=== PATIENT | female | born 1990 | race Two or more races ===

== ENCOUNTER → 2024-08-07 | Outpatient (CLI) | payer BC ==
[2024-08-07 09:23] LABS: % Iron Saturation 55.8 % (15-50)
[2024-08-07 09:26] LABS: Alanine Aminotransferase 96 U/L (7-40); Albumin 4.3 g/dL (3.2-4.8); Alkaline Phosphatase 49 U/L (46-116); Anion Gap 5 (5-15); Aspartate Aminotransferase 43 U/L (13-40); Bilirubin, Total 0.7 mg/dL (0.2-1.0); Blood Urea Nitrogen 12 mg/dL (9-23); Calcium 10.2 mg/dL (8.7-10.4); Carbon Dioxide 25 mmol/L (20-31); Chloride 109 mmol/L (98-107); Cholesterol 147 mg/dL (< 200); Creatine Kinase IFCC 56 U/L (34-145); Glucose 124 mg/dL (74-106); HDL Cholesterol 38 mg/dL (40-59); LDL Cholesterol 92 mg/dL (< 100); Potassium 4.1 mmol/L (3.5-5.1); Sodium 139 mmol/L (136-145); T3 Total 2.29 ng/mL (0.60-1.81); Total Protein 7.4 g/dL (5.7-8.2); Triglycerides 218 mg/dL (< 150)
[2024-08-07 09:27] LABS: Ferritin 794.6 ng/mL (10-291)
[2024-08-07 09:56] LABS: Folate (Folic Acid) 29.49 ng/mL (>5.38)
== END | disposition home or self-care (01) ==
LOC: LAB 08:28
PROVIDERS: ATTEND Internal Medicine
DX: E66.9 Obesity, unspecified (principal); Z00.00 Encounter for general adult medical examination without abnormal findings; Z83.3 Family history of diabetes mellitus
CPT/HCPCS: 36415; 80053; 80061; 82306; 82550; 82607; 82728; 82746; 83036; 83540; 83550; 84436; 84443; 84480

== ENCOUNTER → 2024-10-29 | Outpatient (CLI) | payer BC ==
[2024-10-29 10:16] LABS: Alkaline Phosphatase 70 U/L (46-116); Anion Gap 9 (5-15); Calcium 10.1 mg/dL (8.7-10.4); Carbon Dioxide 26 mmol/L (20-31); Chloride 106 mmol/L (98-107); Potassium 3.9 mmol/L (3.5-5.1); Sodium 141 mmol/L (136-145)
[2024-10-29 10:17] LABS: Blood Urea Nitrogen 9 mg/dL (9-23); Triglycerides 128 mg/dL (< 150)
[2024-10-29 10:18] LABS: Albumin 4.1 g/dL (3.2-4.8); Cholesterol 148 mg/dL (< 200)
[2024-10-29 10:19] LABS: Bilirubin, Total 0.9 mg/dL (0.2-1.0); Total Protein 7.2 g/dL (5.7-8.2)
[2024-10-29 10:21] LABS: Alanine Aminotransferase 87 U/L (7-40); Aspartate Aminotransferase 50 U/L (13-40); Glucose 123 mg/dL (74-106); HDL Cholesterol 38 mg/dL (40-59); LDL Cholesterol 105 mg/dL (< 100)
[2024-10-29 10:49] LABS: Basophils # (auto) 0 10 ^3/uL (0-0.2); Basophils % (auto) 0.2 % (0.0-2.0); Eosinophils # (auto) 0.1 10 ^3/uL (0-0.8); Eosinophils % (auto) 2.7 % (0.0-7.0); Hematocrit 41.3 % (36.0-46.0); Hemoglobin 14.1 g/dL (12.2-16.2); Lymphocytes # (auto) 2.1 10 ^3/uL (0.4-5.4); Lymphocytes % (auto) 41.1 % (10.0-50.0); Mean Corpuscular Hemoglobin 30.9 pg (28.0-32.0); Mean Corpuscular Hgb Conc. 34.3 g/dL (32.0-36.0); Monocytes # (auto) 0.6 10 ^3/uL (0-1.3); Monocytes % (auto) 11.5 % (0.0-12.0); Neutrophils # (auto) 2.2 10 ^3/uL (1.6-8.6); Neutrophils % (auto) 44.5 % (37.0-80.0); Nucleated Red Blood Cells % 0.1 %; Platelet Count (auto) 369 10^3/uL (140-450); Red Blood Cells 4.58 10^6/uL (4.0-5.20); Red Cell Distribution Width 13.8 % (11.8-14.3); White Blood Cell 5.1 10^3/uL (4.4-10.8)
[2024-10-29 11:49] LABS: Ferritin 625.4 ng/mL (10-291); Free T3 11.6 pg/mL (2.3-4.2)
[2024-10-29 11:50] LABS: Free T4 (Free Thyroxine) 2.99 ng/dL (0.89-1.76)
== END | disposition home or self-care (01) ==
LOC: LAB 08:56
PROVIDERS: ATTEND Internal Medicine
DX: E78.5 Hyperlipidemia, unspecified (principal); E55.9 Vitamin D deficiency, unspecified; R79.89 Other specified abnormal findings of blood chemistry
CPT/HCPCS: 36415; 80053; 80061; 82306; 82607; 82728; 83540; 84439; 84443; 84481; 85025